=== PATIENT | female | born 1960 | race Caucasian/White ===

== ENCOUNTER 2017-01-05 13:00 | Emergency (ER) | payer OTHER ==
--- NOTE | 2017-01-05 13:48 | RAD ---
FINGER RIGHT HISTORY: Fall with pinky injury. COMPARISONS: None. FINDINGS: 3 views of the right fifth ray were performed demonstrating evidence of dislocation of the DIP joint. The distal phalanx appears to be located dorsal to the middle phalanx. There is a subtle ossific density seen at the level of the DIP joint which may reflect an associated fracture fragment. IMPRESSION: 1. Dislocation of the DIP joint of the right fifth ray with a questionable small evulsion fracture fragment.
== END 2017-01-05 14:07 | disposition home or self-care (01) ==
LOC: ED 13:00
DX: S62.636A Displaced fracture of distal phalanx of right little finger, initial encounter for closed fracture (principal); S80.211A Abrasion, right knee, initial encounter; W19.XXXA Unspecified fall, initial encounter; Y93.01 Activity, walking, marching and hiking; Y92.480 Sidewalk as the place of occurrence of the external cause